=== PATIENT | male | born 1970 | race Hispanic/Latino ===

== ENCOUNTER → 2018-07-30 10:22 | Outpatient (CLI) | payer OTHER, MEDICAID, SELFPAY ==
--- NOTE | 2018-07-30 10:29 | DI.RAD.S_ITS ---
PROCEDURE: XR LUMBAR SPINE MIN 4V INDICATIONS: Evaluation TECHNIQUE: 5 views of the lumbar spine were acquired. COMPARISON: None. FINDINGS: Suboptimal evaluation due to patient body habitus Bones: No fracture or focal osseous destruction is seen. Facet arthropathy from L3-S1. Degenerative sclerosis and spurring from L3-S1. No definite disc space narrowing. Soft tissues: Overlying bowel gas pattern is normal. No suspicious soft tissue calcifications. Oblique images: No pars defects however limited evaluation given body habitus. IMPRESSION: Mild lower lumbar disc degeneration and facet arthropathy as above. Suboptimal evaluation due to body habitus. Dictated by: Alek Monreal M.D. on 07/30/2018 at 14:01 Approved by: Alek Monreal M.D. on 07/30/2018 at 14:02
== END ==
PROVIDERS: PCP Internal Medicine; Visit Provider Physical Medicine & Rehabilitation
DX: M51.36 Other intervertebral disc degeneration, lumbar region (principal); M51.37 Other intervertebral disc degeneration, lumbosacral region; M47.817 Spondylosis without myelopathy or radiculopathy, lumbosacral region; M47.816 Spondylosis without myelopathy or radiculopathy, lumbar region
CPT/HCPCS: 72110; 99214

== ENCOUNTER 2018-08-11 10:49 | Outpatient (CLI) | payer OTHER, MEDICAID, SELFPAY ==
[2018-08-11] VITALS (7 sets, daily range): BP systolic 117–132; BP diastolic 74–87; PULSE 93–98; RESP 16–23; TEMP 36.3; O2SAT 93–96
--- NOTE | 2018-08-11 10:51 | DI.RAD.S_ITS ---
PROCEDURE: PAIN L/S FACET INJ/BLK 1ST [facility]LETA COMPARISON: None. INDICATIONS: SPONDYLOSIS FINDINGS: 6 intraoperative fluoroscopy images were obtained for pain management. IMPRESSION: Fluoroscopy for pain management. Dictated by: Helga Saleh M.D. on 08/11/2018 at 17:01 Approved by: Helga Saleh M.D. on 08/11/2018 at 17:01
[2018-08-11] MEDS: MIDAZOLAM 5 MG/5 ML VIAL IV (12:40)
[2018-08-11] MEDS: BUPIVACAINE 0.5% (PF) VIAL 2 ML INJ (12:53)
[2018-08-11] MEDS: IOPAMIDOL 15 ML VIAL 3 ML INJ (12:55)
[2018-08-11] MEDS: BETAMETHASONE 30 MG/5 ML MDV 12 MG INJ (12:56)
[2018-08-11] MEDS: LIDOCAINE 1% 20 ML INJ 10 ML INJ (12:56)
--- NOTE | 2018-08-11 13:05 | PC.NURSE ---
pt finished procedure and tolerated well. was able to get himself off the table and into a wheelchair. pt wheeled to pre procedure room for continued monitoring.
--- NOTE | 2018-08-11 13:06 | PM.PROC.1 ---
Procedures Date/Time Date of procedure: 08/11/18 Time of procedure: 13:06 General Procedure description: PREOP DIAGNOSIS 1. FACET ARTHROPATHY 2. AXIAL LBP 3. MULTILEVEL DDD POST OP DIAGNOSIS 1. FACET ARTHROPATHY 2. AXIAL LBP 3. MULTILEVEL DDD PROCEDURES 1. FLUORSCOPICALLY GUIDED CONTRAST CONTROLLED FACET JOINT INJECTIONS BILATERAL L3/4, L4/5 PHYSICIAN: Tad Nguyen DO INDICATIONS: Carlo is referred by Dr. Proctor for treatment of Axial LBP FINDINGS Multilevel Facet Arthropathy with Clinically significant axial LBP DESCRIPTION OF PROCEDURE Fluoroscopically guided, contrast-controlled bilateral L3/4, L4/5 facet joint injections. Following denial of allergy and review of potential side effects and complications, including, but not necessarily limited to, infection, allergic reaction, local tissue breakdown, stroke, temporary or permanent nerve injury, paralysis, and possible , the patient indicated that the patient understood and agreed to proceed. An informed consent document was signed by the patient, witnessed by a nurse, and placed in the patient's chart. Additionally, other treatment options including medications, modalities, and physical therapy were reviewed with the patient. After review of previous anaesthesic history and IV conscious sedation the patient was deemed safe to proceed with todays procedure with IV conscious sedation as ASA class II designation. Safety time-out was performed to confirm patient ID, procedure to be performed and site of procedure. IV sedation was accomplished with a combination of 5mg of Versed was administered by the RN after DO order, titrated to patient comfort during the course of the procedure while the patient remained responsive to all verbal commands. In the prone position, following sterile prep and drape of the lumbar region, the posterior aspect of the L3/4, L4/5 facet joints were identified fluoroscopically. The skin was anesthetized via a 25-gauge 1.5-inch needle with 1% lidocaine solution into the corresponding facet joints. At this point, a 22-gauge 3.5-inch spinal needle was atraumatically introduced and advanced under fluoroscopic guidance into the corresponding facet joints. Following negative aspiration, injections of approximately 0.2-cc of Isovue 200 confirmed interarticular placement without vascular uptake. The identical procedure was then performed at the L3/4, L4/5 facet joints on the left. Radiological data, including multiple fluoroscopic views of the lumbosacral spine, reveal a spinal needle at the L3/4, L4/5 facet joints bilaterally. Subsequent views show flow of contrast material both superiorly and inferiorly within the joint space without vascular or intrathecal uptake. At this point, a total of 0.5 cc including a mixture of 0.25 cc Marcaine and 0.25 cc betamethasone was injected without complication into each of the corresponding facet joints. The patient tolerated the procedure well without signs or symptoms of complications prior to transfer to the recovery area continued monitoring without incident. The patient was then transferred to the recovery area where they were observed for an appropriate period of time after the injection. The patient reported a VAS score of 7 prior to the procedure and a post-procedure VAS of 0. Total Fluoroscopy Time: 20.3 seconds Total Conscious Sedation Time: 24min POST OP INSTRUCTIONS The patient was provided a Pain Log to continue to record their response to the target-specific procedure prior to follow-up visit with their referring physician. Additionally, specific post-injection care instructions and a contact number to our office were provided if concerns arise regarding possible complications associated with the procedure are suspected. Tad Nguyen, Complications: none
== END 2018-08-11 13:15 | disposition home or self-care (01) ==
LOC: RAD 10:51
PROVIDERS: PCP Internal Medicine; Visit Provider Physical Medicine & Rehabilitation
DX: M47.817 Spondylosis without myelopathy or radiculopathy, lumbosacral region (principal); M47.816 Spondylosis without myelopathy or radiculopathy, lumbar region; M54.5 Low back pain; M51.36 Other intervertebral disc degeneration, lumbar region
CPT/HCPCS: 64493; 64494; 99152; J0702; J2250

== ENCOUNTER 2018-10-21 13:51 | Outpatient (CLI) | payer OTHER, MEDICAID, SELFPAY ==
[2018-10-21] VITALS (9 sets, daily range): BP systolic 115–140; BP diastolic 74–90; PULSE 77–93; RESP 16–18; TEMP 36.8; O2SAT 92–94
--- NOTE | 2018-10-21 13:52 | DI.RAD.S_ITS ---
PROCEDURE: PAIN L/S FACET INJ/BLK 1ST [facility] COMPARISON: [facility], , PAIN L/S FACET INJ/BLK 1ST [facility], 08/11/2018, 13:51. INDICATIONS: SPINAL STENOSIS FINDINGS: Fluoroscopic spot filming was performed to verify placement of spinal needles at the L3, L4, L5 level(s), as labeled on the films. Appropriate location(s) of the needle tip(s) was confirmed by injection of iodinated contrast. Dictated by: Alek Monreal M.D. on 10/21/2018 at 15:55 Approved by: Alek Monreal M.D. on 10/21/2018 at 15:56
--- NOTE | 2018-10-21 14:58 | PM.PROC.1 ---
Procedures Date/Time Date of procedure: 10/21/18 Time of procedure: 14:59 General Procedure description: POST OP DIAGNOSIS 1. FACET ARTHROPATHY PROCEDURES 1. BILATERAL L3, L4 AND L5 MB BLOCKS PHYSICIAN: Tad Nguyen DO INDICATIONS is referred by for treatment of Bilateral Axial LBP. DESCRIPTION OF PROCEDURE Fluoroscopically guided, contrast-controlled bilateral L3, L4 AND L5 medial branch blocks with 0.5cc of 0.5% Marcaine. Following denial of allergy and review of potential side effects and complications, including, but not necessarily limited to, infection, allergic reaction, local tissue breakdown, nerve injury, paralysis, stroke and possible , the patient indicated that the patient understood and agreed to proceed. An informed consent document was signed by the patient, witnessed by a nurse, and placed in the patient's chart. After review of previous anaesthesic history and IV conscious sedation the patient was deemed safe to proceed with todays procedure with IV conscious sedation as ASA class II designation. Safety time-out was performed to confirm patient ID, procedure to be performed and site of procedure. IV sedation was accomplished with a combination of 5mg of Versed was administered by the RN after DO order, titrated to patient comfort during the course of the procedure while the patient remained responsive to all verbal commands In the prone position, following sterile prep and drape of the lumbar region, the right L3, L4 AND L5 anatomical location of the medial branch of the dorsal ramus was identified fluoroscopically. Subsequently an anesthetic skin wheal using 1% lidocaine solution was initiated at each of the anatomical spots. Subsequently then a 22-gauge 3.5-inch spinal needle was atraumatically introduced and advanced under fluoroscopic guidance at each of the corresponding sites at the right L3, L4 AND L5 MB. After negative aspiration, 0.2 cc of Isovue 200 was injected, confirming placement without vascular or intrathecal uptake. Subsequently then 0.5 cc of 0.5% Marcaine solution was injected at each of the corresponding sites at the Right L3, L4 AND L5 medial branch locations. The identical procedure was replicated on the left. The patient tolerated the procedure well without signs or symptoms of complications. The patient tolerated the procedure well without signs or symptoms of complications prior to transfer to the recovery area continued monitoring without incident. Post-procedure, the patient was monitored initiating provocative activities to measure the amount of relief from block of the facetogenic pain. The patient reported a VAS of 7 prior to the procedure and a post-procedure VAS of 1. It has been a pleasure to assist in the diagnostic and therapeutic care of your patient. Total Fluoroscopy Time: 24.8 seconds Total Conscious Sedation Time: 24min POST OP INSTRUCTIONS The patient was provided with a Pain Log to complete over the next several hours and subsequent days prior to the patient's follow up with the ordering physician. 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 The patient is aware, was provided, once again, with a Pain Log and will follow up with the referring physician for review and clinical correlation Tad Nguyen DO Complications: none
[2018-10-21] MEDS: MIDAZOLAM 5 MG/5 ML VIAL IV (15:18)
[2018-10-21] MEDS: BUPIVACAINE 0.5% (PF) VIAL 2 ML INJ (15:24)
[2018-10-21] MEDS: LIDOCAINE 1% 20 ML INJ 10 ML INJ (15:25)
[2018-10-21] MEDS: IOPAMIDOL 15 ML VIAL 3 ML INJ (15:25)
[2018-10-21] MEDS: BETAMETHASONE 30 MG/5 ML MDV 12 MG INJ (15:25)
--- NOTE | 2018-10-21 16:07 | PC.NURSE ---
Pt returned from procedure awake and alert, able to move from w/c to chair without problems, Resumed monitoring from [facility].
== END 2018-10-21 16:00 ==
LOC: RAD 13:52
PROVIDERS: PCP Internal Medicine; Visit Provider Physical Medicine & Rehabilitation
DX: M47.816 Spondylosis without myelopathy or radiculopathy, lumbar region (principal); M47.817 Spondylosis without myelopathy or radiculopathy, lumbosacral region; M48.062 Spinal stenosis, lumbar region with neurogenic claudication
CPT/HCPCS: 64493; 64494; 99152; J0702; J2250